=== PATIENT | female | born 1940 | race Caucasian/White ===

== ENCOUNTER 2016-09-25 20:16 | Inpatient (IN) | payer MEDICARE ==
[~2016-09-25] VITALS: Ht 165.1 cm; Wt 102.6 kg
[2016-09-25] MEDS ORDERED: SODIUM CHLORIDE 0.9% 1,000 ML IV ONE (20:32)
[2016-09-25] MEDS ORDERED: SIMV20TA3 PO (20:49)
[2016-09-25] MEDS ORDERED: SIMV40TA3 PO (20:51)
[2016-09-25 20:58] LABS: HEMOGLOBIN 16.1 g/dL (11.7-16.4)
[2016-09-25] MEDS ORDERED: SODIUM CHLORIDE FLUSH 10ML SYR IVF ONE (21:00)
[2016-09-25] MEDS ORDERED: SODIUM CHLORIDE 0.9% 1,000ML IVBOLUS ONE (21:00)
[2016-09-25 21:11] LABS: BLOOD UREA NITROGEN 17 mg/dL (7-18)
[2016-09-25 21:16] LABS: IS PT STATUS REG ER OR PRE ER? YES
[2016-09-25 22:14] LABS: PATH.CAST-FLAG NOT PRESENT; SPERM-FLAG NOT PRESENT; SRC-FLAG NOT PRESENT; XTAL-FLAG NOT PRESENT; YLC-FLAG NOT PRESENT
[2016-09-25 22:49] VITALS: BP 171/90
[2016-09-26] MEDS ORDERED: ACET325T14 PO (00:03)
[2016-09-26] MEDS ORDERED: [UNRECOGNIZED DRUG - OTHER] PO (00:03)
[2016-09-26] MEDS ORDERED: [UNRECOGNIZED DRUG - OTHER] PO (00:03)
[2016-09-26] MEDS ORDERED: OMEP10CA4 PO (00:03)
[2016-09-26] MEDS ORDERED: ASPI-621 PO (00:03)
[2016-09-26] MEDS ORDERED: DOCU250C2 PO (00:03)
[2016-09-26] MEDS ORDERED: [UNRECOGNIZED DRUG - OTHER] PO (00:03)
[2016-09-26] MEDS ORDERED: [UNRECOGNIZED DRUG - OTHER] PO (00:03)
[2016-09-26] MEDS ORDERED: ENOXAPARIN 40 MG/0.4 ML SQ SCH (01:30)
[2016-09-26] MEDS ORDERED: ACETAMINOPHEN 325 MG TABLET PO PRN (01:30)
[2016-09-26 02:02] LABS: IS PT STATUS REG ER OR PRE ER? NO
[2016-09-26 03:15] VITALS: BP 153/75
[2016-09-26 07:26] VITALS: BP 163/90
[2016-09-26] MEDS ORDERED: POTASSIUM CHLORIDE 20 MEQ TAB.ER.PRT PO ONE (08:30)
[2016-09-26] MEDS ORDERED: [UNRECOGNIZED DRUG - OTHER] HOMEMEDPO SCH (09:00)
[2016-09-26] MEDS ORDERED: ASPIRIN 81 MG TABLET EC PO SCH (09:00)
[2016-09-26] MEDS ORDERED: [UNRECOGNIZED DRUG - OTHER] HOMEMEDPO SCH (09:00)
[2016-09-26] MEDS ORDERED: [UNRECOGNIZED DRUG - OTHER] HOMEMEDPO SCH (09:00)
[2016-09-26] MEDS ORDERED: [UNRECOGNIZED DRUG - OTHER] HOMEMEDPO SCH (09:00)
[2016-09-26 09:16] LABS: IS PT STATUS REG ER OR PRE ER? NO
[2016-09-26] MEDS ORDERED: SIMVASTATIN 40 MG TABLET PO SCH (21:00)
[2016-09-26] MEDS ORDERED: DOCUSATE CALCIUM 240 MG CAPSULE PO SCH (21:00)
[2016-09-26] MEDS ORDERED: OMEPRAZOLE 10 MG CAPSULE.DR PO SCH (21:00)
== END 2016-09-26 10:30 | disposition home or self-care (01) | DRG 641 ==
LOC: ED 21:43 → OBSVTOIN 21:44 → 4WST 21:44 → ED 21:57 → DCLOUNGE 09-26 10:18
PROVIDERS: ADMIT Internal Medicine; ATTEND Internal Medicine
DX: E86.0 Dehydration (principal); R00.0 Tachycardia, unspecified; I10 Essential (primary) hypertension; R82.71 Bacteriuria; R63.4 Abnormal weight loss; E66.01 Morbid (severe) obesity due to excess calories; R73.03 Prediabetes; Z82.3 Family history of stroke; Z86.73 Personal history of transient ischemic attack (TIA), and cerebral infarction without residual deficits; Z68.37 Body mass index [BMI] 37.0-37.9, adult; Z87.891 Personal history of nicotine dependence; Z88.5 Allergy status to narcotic agent; Z88.2 Allergy status to sulfonamides
CPT/HCPCS: 36415; 71010; 80048; 81001; 82040; 83735; 84436; 84439; 84443; 84484; 85025; 85379; 87086; 93005; 96360; 96361; J7030